=== PATIENT | female | born 1990 | race Caucasian/White ===

== ENCOUNTER 2022-06-11 12:28 | Emergency (ER) | payer OTHER, SELFPAY ==
[2022-06-11 12:34] VITALS: BP 139/85; PULSE 84; RESP 20; TEMP 36.8; O2SAT 99
--- NOTE | 2022-06-11 12:38 | ED.EXTPRO ---
HPI - Extremity Problem General Chief complaint: Extremity Problem,Nontraumatic Stated complaint: Pain in both shoulders Source: patient and RN notes reviewed History of Present Illness HPI Narrative: 32 yo F presents to urgent care with complaints of pain between her shoulder blades and bilateral upper back x 1 week. Pt states the pain will radiate down her bilateral upper arms to her elbows and reports intermittent tingling to the upper arms. Pt states the pain occurs when she lets her arms hang down to her side or lifts them above shoulder height. Pt states the pain is not present when she hold her arms at shoulder height. Pt reports lifting a heavy item at work 1 week ago and denies feeling the pain at the time of incident but states the pain started later that day. Denies any fevers, chills, chest pain,or SOB. Pt has taken 400 mg of ibuprofen without relief. Related Data Allergies Allergy/AdvReac Type Severity Reaction Status Date / Time ciprofloxacin [From Cipro] Allergy Rash Verified 06/11/22 12:34 Review of Systems Review of Systems: CONSTITUTIONAL: Denies fever, chills, or sweats. EYES: Denies visual changes, redness, or discharge. ENT: Denies otalgia and sore throat CARDIOVASCULAR: Denies chest pain, palpitations, or edema. RESPIRATORY: Denies cough or dyspnea. GASTROINTESTINAL: Denies abdominal pain, nausea, vomiting, or diarrhea. GENITOURINARY: Denies dysuria or hematuria. SKIN: Denies rash or itching. MUSCULOSKELETAL: Reports upper back pain NEUROLOGIC: Reports bilateral upper arm tingling, intermittently. [facility] Family History Family History (Updated 12/10/11 @ 13:43 by DOCTOR UNKNOWN) Other Diabetes mellitus Social History Social History Smoking status: Never smoker Alcohol intake: never Comments At the time of my signature, I reviewed and agree with the nursing past medical, surgical, social, and family history. There is no relevant family history pertinent to the patient complaint. Exam Narrative: GENERAL: This is a well-nourished, well-developed patient, in no apparent distress. HEAD: normocephalic, atraumatic. EYES: Sclera clear/white. Vision is grossly intact. EARS: External ears normal. Hearing grossly intact. NOSE: External nose normal with no obvious nasal discharge, nares without redness, no rhinorrhea. NECK: Neck supple, non-tender without lymphadenopathy, masses or thyromegaly. CARDIOVASCULAR: Regular rate and rhythm without murmurs, gallops, or rubs. RESPIRATORY: Clear to auscultation. Breath sounds equal bilaterally. No wheezes, rales, or rhonchi. GASTROINTESTINAL: Abdomen soft, non-tender, nondistended. Bowel sounds are active. No hepato-splenomegaly, or palpable masses. No guarding. SKIN: warm, intact with no suspicious lesions or rash, good texture and turgor. NEURO: awake, alert, and oriented to person, place and time. There were no obvious focal neurologic abnormalities. EXTREMITIES: No clubbing, cyanosis, or edema. No joint tenderness, effusion, or edema noted. Tenderness noted to bilateral trapezius muscles. BACK: Nontender without deformity or crepitance. No flank tenderness. Course Course Level of Care: Express Care Visit Vital Signs Vital signs: Vital Signs Temperature 98.3 F 06/11/22 12:34 Pulse Rate 84 06/11/22 12:34 Respiratory Rate 20 06/11/22 12:34 Blood Pressure 139/85 06/11/22 12:34 Pulse Oximetry 99 06/11/22 12:34 Oxygen Delivery Room Air 06/11/22 12:34 Temperature 98.3 F 06/11/22 12:34 Pulse Rate 84 06/11/22 12:34 Respiratory Rate 20 06/11/22 12:34 Blood Pressure 139/85 06/11/22 12:34 Pulse Oximetry 99 06/11/22 12:34 Oxygen Delivery Room Air 06/11/22 12:34 Reviewed MDM - Extremity (Nontraumatic) MDM Narrative Medical decision making narrative: May heat up back muscles for 15 min, followed by light stretches of the muscles for 15 min, followed by cold application for 15 min. May do this 2-3x/day. M
== END 2022-06-11 12:53 | disposition home or self-care (01) ==
PROVIDERS: Emergency Provider Nurse Practitioner Family; PCP Family Medicine
DX: S29.012A Strain of muscle and tendon of back wall of thorax, initial encounter (principal); X50.0XXA Overexertion from strenuous movement or load, initial encounter; Y99.0 Civilian activity done for income or pay; M54.13 Radiculopathy, cervicothoracic region
CPT/HCPCS: 99203; G0463

== ENCOUNTER 2025-03-17 11:27 | Emergency (ER) | payer OTHER, SELFPAY ==
--- NOTE | ~2025-03-17 | XR_ITS ---
Examination: XR wrist RT min 3V Clinical History: twisting injury, GEN LAT AND MED PAIN Comparison: None Technique: 4 views right wrist Findings/impression: 1. No acute fracture or dislocation right wrist. 2. Chronic avulsion fracture ulnar styloid. Reviewed, dictated and finalized at location R. OR AUTOMATION ENGINEER
--- OUTSIDE RECORDS SUMMARY | 2025-03-17 11:29 | XMS_ITS | Encounter Summary ---
Author Organization [facility] Address [address] [place] [address] Care Team Providers Care Shopping Investigator Name Role Phone Michelle Lou DUSTY Unavailable [phone] Encounter Details Date Type Department Care Team (Late st Contact Info) Description 03/26/2020 Telephone [facility] Women's Health Maternal & Care [address] [place], [place] [id number] Rocío Rhoades, [facility] Social History Tobacco Use Types Packs/Day Years Used Date Smoking Tobacco: Former Cigarettes 0 Q uit: 12/14/2007 Smokeless Tobacco: Never Alcohol Use Standard Drinks/Week Comments No 0 (1 standard drink = 0.6 oz pur e alcohol) social rarely Comments Yes Sex and Gender Information Value Date Recorded Sex Assigned at Not on file Legal Sex Female 5:56 PM PET CARE WORKER Gender Identity Not on file Sexual Orientation Not on file COVID-19 Exposure Response Date Recorded In the last month, have you been in contact with someone who was confirmed or suspected to have Coronavirus / COVID-19? No / Unsure 03/05/2020 1:59 PM PET CARE WORKER documented as of this encounter Functional Status * Is person deaf or have serious hearing difficulty? Answer Date of Assessment Author No 04/02/2019 12:00 PM PET CARE WORKER Homer Jorgensen, MARINA-SHANE * Is person blind or have serious difficulty seeing? Answer Date of Assessment Author No 04/02/2019 12:00 PM Homer Jose APRN-CNP * Does person have serious difficulty walking/climbing stairs? Answer Date of Assessment Author No 04/02/2019 12:00 PM Homer Jose APRN-CNP * Does person have difficulty dressing/bathing? Answer Date of Assessment Author No 04/02/2019 12:00 PM Homer Jose APRN-CNP * Does person have difficulty doing errands alone? Answer Date of Assessment Author No 04/02/2019 12:00 PM Homer Jose APRN-CNP documented as of this encounter Mental Status * Does person have difficulty concentrating/remembering/making decisions? Answer Entry Date Author No 04/02/2019 12:00 PM Homer Jose APRN-CNP documented in this encounter Plan of Treatment Not on file documented as of this encounter Visit Diagnoses Not on filedocumented in this encounter Care Teams Shopping Investigator Relationship Specialty Start Date End Date Michelle Lou APRN-CNP [address] [id number] PCP - Attributed-[place] Medicaid [facility] 12/25/20 10/07/22 documented as of this encounter
--- OUTSIDE RECORDS SUMMARY | 2025-03-17 11:29 | XMS_ITS | Clinical Summary ---
Author Organization [facility] Address [address] [place] [id number] Care Team Providers Care Staff Development Coordinator Name Role Phone None, Provider MD Primary Care Provider Unavaila ble Allergies Active Allergy Reactions Criticality Noted Date Comments Ciprofloxacin Rash Low 12/22/2019 Medications No known medications Family History Medical History Relation Comments No Known Problems Father No Known Problems Mother Relation Status Comments Father Mother Social History Tobacco Use Types Packs/Day Years Used Date Smoking Tobacco: Former Smokeless Tobacco: Never Alcohol Use Standard Drinks/Week Comments Never 0 (1 standard drink = 0.6 oz pur e alcohol) AUDIT-C Answer Date Recorded Q1: How often do you have a drink containing alc ohol? Never 04/23/2020 Average Number of Drinks Not on file 020 Frequency of Binge Drinking Not on file 03/27 Comments No Sex and Gender Information Value Date Recorded Sex Assigned at Not on file Legal Sex Female 8:00 AM CDT Gender Identity Not on file Sexual Orientation Not on file Last Filed Vital Signs Vital Sign Reading Time Taken Comments Blood Pressure 142/86 05/03/2021 9:19 AM PERSONAL COMPUTER SPECIALIST Pulse 82 05/03/2021 9:19 AM PERSONAL COMPUTER SPECIALIST Temperature 36.3 C (97.3 F) 05/03/2021 9:19 AM PERSONAL COMPUTER SPECIALIST Respiratory Rate 18 05/03/2021 9:19 AM PERSONAL COMPUTER SPECIALIST Oxygen Saturation 98% 05/03/2021 9:19 AM PERSONAL COMPUTER SPECIALIST Inhaled Oxygen Concentration - - Weight 78 kg (172 lb) 04/23/2020 3:19 PM PERSONAL COMPUTER SPECIALIST Height 157.5 cm (5' 2) 04/23/2020 3:19 PM PERSONAL COMPUTER SPECIALIST Body Mass Index 31.46 04/23/2020 3:19 PM PERSONAL COMPUTER SPECIALIST Plan of Treatment Health Maintenance Due Date Last Done Comments Cervical Cancer Screening Pa p Smear (Age 30 to 64) Every 3 Years 1988 Annual Physical 02/03/1991 DTaP, Tdap and Td Vaccines ( 1 - Tdap) 02/03/2007 Hepatitis B Vaccines (1 of 3 - 19+ 3-dose series) 02/03/2007 HPV Vaccines (1 - 3-dose SCD M series) 02/03/2015 Cervical Cancer Screening Pa p with HPV Testing (Age 30 to 64) Every 5 Years 02/03/2018 Cervical Cancer Screening with HPV 02/03/2018 COVID-19 Vaccine (2024-2 6 season) 2024 Influenza Adult (#1) 2025 Hepatitis C Completed 12/22/2019 Hepatitis A Vaccines Aged Out No long er eligible based on patient's age to complete this topic Meningococcal B Vaccine Aged Out No l onger eligible based on patient's age to complete this topic Meningococcal Vaccine Aged Out No romel donna eligible based on patient's age to complete this topic Pneumococcal Vaccine: Pediat rics (0 to 5 Years) and At-Risk Patients (6 to 49 Years) Aged Out No longer eligi ble based on patient's age to complete this topic RSV Immunizations Under 20 Months Aged Out No longer eligible based on patient's age to complete this topic Procedures Procedure Name Priority Date/Time Associated Diagnosis Comments HEPATITIS PANEL,ACUTE STAT 12/22/2019 2:20 AM CDT Abdominal pain from Last 3 Months or Most Recently Relevant to Health Maintenance Results * HEPATITIS PANEL,ACUTE (12/22/2019 2:20 AM CDT) HEPATITIS B SURFACE AG NON-REACTI VE NON-REACTI VE 12/22/2019 4:06 AM CDT [facility] HEP B CORE IGM NON-REACTI VE NON-REACTI VE 12/22/2019 4:06 AM CDT [facility] HAV IGM NON-REACTI VE NON-REACTI VE 12/22/2019 4:06 AM CDT [facility] HEPATITIS C AB NON-REACTI VE NON-REACTI VE 12/22/2019 4:06 AM CDT [facility] 12/22/2019 2:20 AM CDT Anuel Flores MD LABORATORY Final Result [facility] [address] [place] [address], from Last 3 Months or Most Recently Relevant to Health Maintenance Insurance [employer] Care Teams Staff Development Coordinator Relationship Specialty Start Date End Date None, Provider, PCP - General 05/03/21
--- OUTSIDE RECORDS SUMMARY | 2025-03-17 11:29 | XMS_ITS | Clinical Summary ---
Author Organization [facility] Address [address] [place] [address] Phone Care Team Providers Care Product Consultant Name Role Phone Provider, None Primary Care Provider Unavailabl e Allergies No known active allergies Medications HYDROcodone-acet aminophen (NORCO) 5-325 MG TabletIndication s:Moderate to Moderately Severe Pain Take 1-2 Tabs by mouth every 4 hours as needed for Pain. Indications: Moderate to Moderately Severe Pain 30 Tab 0 6 Active ondansetron (ZOFRAN-ODT) 4 MG TABLET DISPERSIBLE Take 1 Tab by mouth every 8 hours as needed for Nausea - 1st line. 15 Tab 9 Active oxyCODONE-acetam inophen (PERCOCET) 5-325 MG Tablet Take 1-2 Tabs by mouth every 4 hours as needed for Severe pain. 30 Tab 9 Active Active Problems No known active problems Family History Medical History Relation Name Comments Diabetes Brother Alcohol Abuse Father Alcohol Abuse Maternal Grandfather Heart Disease Maternal Grandfather Alzheimer's Disease Maternal Grandmother Heart Disease Maternal Grandmother Lupus Maternal Grandmother Miscarriage Maternal Grandmother Depression Mother Alcohol Abuse Paternal Grandfather Diabetes Paternal Grandfather Heart Attack Paternal Grandfather Heart Disease Paternal Grandfather Stroke Paternal Grandfather Alcohol Abuse Paternal Grandmother Heart Disease Paternal Grandmother Relation Name Status Comments Brother Father Alive Maternal Grandfather Maternal Grandmother Mother Alive Paternal Grandfather Paternal Grandmother Social History Tobacco Use Types Packs/Day Years Used Date Smoking Tobacco: Former Cigarettes 0 Q uit: 04/13/2008 Smokeless Tobacco: Never Alcohol Use Standard Drinks/Week Comments No 0 (1 standard drink = 0.6 oz pur e alcohol) Sexually Active Control Partners Comments Yes Male Comments No Sex and Gender Information Value Date Recorded Sex Assigned at Not on file Legal Sex Female 10:33 PM CDT Gender Identity Not on file Sexual Orientation Not on file Last Filed Vital Signs Vital Sign Reading Time Taken Comments Blood Pressure 115/71 03/31/2019 10:19 AM MINING ENGINEERING TECHNOLOGIST Pulse 87 03/31/2019 10:19 AM MINING ENGINEERING TECHNOLOGIST Temperature 36.6 C (97.9 F) 03/31/2019 10:19 AM MINING ENGINEERING TECHNOLOGIST Respiratory Rate 14 03/31/2019 10:19 AM MINING ENGINEERING TECHNOLOGIST Oxygen Saturation 98% 03/31/2019 10:19 AM MINING ENGINEERING TECHNOLOGIST Inhaled Oxygen Concentration - - Weight 74.8 kg (165 lb) 03/27/2019 9:33 PM MINING ENGINEERING TECHNOLOGIST Height 160 cm (5' 3) 03/27/2019 9:33 PM MINING ENGINEERING TECHNOLOGIST Body Mass Index 29.23 03/27/2019 9:33 PM MINING ENGINEERING TECHNOLOGIST Plan of Treatment Health Maintenance Due Date Last Done Comments Hepatitis C Virus (HCV) Screening 1988 Varicella Immunization (1 of 2 - 13+ 2-dose series) 02/03/2001 Pap Smear 02/03/2009 Human Papillomavirus (HPV) Immunization (1 - 3-dose SCDM series) 02/03/2015 Cervical Cancer Screening (CCS) 02/03/2018 HPV/Cotest 02/03/2018 Influenza Immunization (#1) 2024 SARS-COV-2 Immunization ( season) 2024 Respiratory Syncytial Virus (RSV) Immunization (Adult) (1 - 1-dose 75+ series) 02/03/2063 DTaP/Tdap/Td Immunization Discontinued 08/16/2007 TdaP Immunization Completed 08/16/2007 Hepatitis B Immunization Completed 009, 04/30/2008, 08/16/2007 Meningococcal Immunization (ACWY) Aged Out No longer eligible based on patient's age to complete this topic Pneumococcal Immunization Combined Aged Out No longer eligible based on patient's age to complete this topic Rotavirus Immunization Aged Out No lo nger eligible based on patient's age to complete this topic Insurance MEDICAID [place] Advance Directives * Full Code (Latest Code Status on File) Date Activated Date Inactivated Comments 10/03/2015 4:21 PM 10/06/2015 7:33 PM CPR-Full Rolanda tment: FULL ARREST: Attempt Resuscitation/CPR wit intubation and mechanical ventilation. PRE-ARREST: Use entire range of life support measures to stabilize the patient. * Full Code Date Activated Date Inactivated Comments 09/13/2015 9:29 AM 09/13/2015 1:22 PM CPR-Full Alex atment: FULL ARREST: Attempt Resuscitation/CPR wit intubation and mechanical ventilation. PRE-ARREST: Use entire range of life support measures to stabilize the patient. * Full Code Date Activated Date Inactivated Comments 09/10/2015 3:02 PM 09/10/2015 5:50 PM CPR-Full Alex atment: FULL ARREST: Attempt Resuscitation/CPR wit intubation and mechanical ventilation. PRE-ARREST: Use entire range of life support measures to stabilize the patient. * Full Code Date Activated Date Inactivated Comments 09/03/2015 10:54 AM 09/03/2015 3:52 PM CPR-Full Tr eatment: FULL ARREST: Attempt Resuscitation/CPR wit intubation and mechanical ventilation. PRE-ARREST: Use entire range of life support measures to stabilize the patient. * Full Code Date Activated Date Inactivated Comments 08/27/2015 10:05 PM 08/28/2015 7:22 PM CPR-Full Rolanda tment: FULL ARREST: Attempt Resuscitation/CPR wit intubation and mechanical ventilation. PRE-ARREST: Use entire range of life support measures to stabilize the patient. Care Teams Product Consultant Relationship Specialty Start Date End Date Provider, None [place] PCP - General 08/26/15
--- OUTSIDE RECORDS SUMMARY | 2025-03-17 11:29 | XMS_ITS | Clinical Summary ---
Author Organization [facility] Address [address] [place] [address] Care Team Providers Care Front Desk Supervisor Name Role Phone No, Physician Primary Care Provider [phone] Allergies Active Allergy Reactions Criticality Noted Date Comments Ciprofloxacin Rash Medium 10/05/2019 Medications nitrofurantoin monohydrate (MACROBID) 100 mg capsule Take 1 capsule (100 mg total) by mouth 2 (two) times a day 10 capsule 10/19/2024 Active phenazopyridine (PYRIDIUM) 200 mg tablet Take 1 tablet (200 mg total) by mouth 3 (three) times a day 6 tablet 10/19/2024 Active Active Problems Problem Noted Date Diagnosed Date Low grade squamous intraepit h lesion on cytologic smear cervix (lgsil) 07/24/2020 History of 09/19/2019 Overview (02/19/2020): 2008 op report requested 02/19/2020 Pt reports being told she had a J incision. Gestational diabetes mellitus (GDM), antepartum 09/19/2019 Overview (02/16/2020): Will send referral to [facility] once is confirmed. 09/24-10/03 Fastin-109 9/ elevated PP bfast: 104-160 2/7 elevated PP lunch: 98-131 1/4 elevated PP dinner: 106-178 5/8 elevated 10/12/19 New regimen: Humalog 4 at breakfast, 6 at dinner NPH: 10 units with breakfast, 20 units HS Fastin-112 PP bfast: 128-130 PP lunch: 98-124 PP dinner: 94-130 10/19/19 Humalo units with bfast, 6 units with dinner NPH: 10 units with bfast, 24 units with dinner Fastin-100 PP bfast: 104-130 PP lunch: 110-130 PP dinner: 97-130 10/26/2019 Fastin-107 PP bfast: 72-127 PP lunch: 95-150 PP dinner: 100-140 11/09/2019 Fastin-111 PP bfast: 90-176 PP lunch: 107 PP dinner: 85-177 11/17/2019 Fastin-97 PP bfast: 97-122 PP lunch: 89-184 PP dinner: 85-136 11/23/19 Fastin-102 PP bfast: 90-105 PP lunch: 89-116 PP dinner: 90-145 12/21/2019 Fastin-129 3/ elevated PP bfast: 92-114 0/3 e;evated PP lunch: 82-224 1/ elevated PP dinner: 83-225 2/7 elevated 01/18/2020 Fasting 73-85 PP bfast: 93-314 1 of 3 over goal PP lunch: 98-140 2 of 4 over goal PP dinner: 111-169 2 of 7 over goal 02/15/2020 Fasting 77-109 4 of 7 over goal After meals 89-158 2 of 11 of goal Encounter for removal of biliary stent 8 Overview (03/10/2018): Added automatically from request for surgery [id number] Choledocholithiasis 02/22/2018 Overview (02/22/2018): Added automatically from request for surgery [id number] Pancreatitis 02/08/2018 Assessment & Plan (02/10/2018 1:45 PM CDT): - patient developed post ERCP pancreatitis with PD stent migration on imaging on 02/07 -Lipase 920--->980 -improved with conservative management : IV fluids, NPO, PRN IV morphine Started clears 02/08 and advanced diet, has tolerated low fat diet for lunch, ok for discharge home today Assessment & Plan (02/09/2018 8:20 PM CDT): - patient developed post ERCP pancreatitis with PD stent migration on imaging on 02/07 -Lipase 920--->980 -improved with conservative management : IV fluids, NPO, PRN IV morphine Started clears and advancing diet Assessment & Plan (02/08/2018 10:32 AM CDT): - patient developed post ERCP pancreatitis with PD stent migration on imaging on 02/07 -Lipase 920--->980 - conservative management : IV fluids, NPO, on PRN IV morphine pain better controlled , still requiring frequent IV morphine: monitor and will consider starting trial of clears when narcotics requirement decreased Hepatitis C antibody test positive 02/07/2018 Assessment & Plan (02/10/2018 1:45 PM CDT): - Hep C antibody done on 02-04-18 at [facility] is positive -checked HCV PCR : not detected. Assessment & Plan (02/09/2018 8:21 PM CDT): - Hep C antibody done on 02-04-18 at [facility] is positive -checked HCV PCR : not detected Assessment & Plan (02/08/2018 10:15 AM CDT): - Hep C antibody done on 02-04-18 at [facility] is positive -checking HCV PCR, results pending Assessment & Plan (02/07/2018 9:50 AM CDT): - Hep C antibody done on 02-04-18 at [facility] is positive -check HCV PCR Choledocholithiasis with obstruction 02/05/2018 Assessment & Plan (02/10/2018 1:57 PM CDT): Biliary following: s/p ERCP on 02/07 with biliary sphincterotomy, mechanical lithotripsy, balloon extraction and placement of plastic stent in the CBD and a protective PD stent was placed per study protocol per Biliary (#[id number]), c/b post ERCP pancreatitis with PD stent migration on imaging. -Plan discussed with Biliary,Team plans to repeat ERCP in 3 months for stent removal and will need HBS consult for consideration of CCK once pancreatitis improved, called HBS and t will be will be set up with clinic appointment with Dr Davenport after discharge Pt improved, tolerating solid diet, dc home today Assessment & Plan (02/09/2018 8:22 PM CDT): Biliary following: s/p ERCP on 02/07 with biliary sphincterotomy, mechanical lithotripsy, balloon extraction and placement of plastic stent in the CBD and a protective PD stent was placed per study protocol per Biliary (#[id number]), c/b post ERCP pancreatitis with PD stent migration on imaging. -Plan discussed today with Biliary,Team plans to repeat ERCP in 3 months for stent removal and will need HBS consult for consideration of CCK once pancreatitis improved, called HBS and they will set up a clinic appointment after discharge Assessment & Plan (02/08/2018 10:24 AM CDT): Biliary following: s/p ERCP on 02/07 with biliary sphincterotomy, mechanical lithotripsy, balloon extraction and placement of plastic stent in the CBD and a protective PD stent was placed per study protocol per Biliary (#[id number]), c/b post ERCP pancreatitis with PD stent migration on imaging. -Plan discussed today with Biliary, continue to monitor LFTs daily .No evidence of cholangitis , ok to dc antibiotics - Team plans to repeat ERCP in 3 months for stent removal and will need HBS consult for consideration of CCK once pancreatitis improved Assessment & Plan (02/07/2018 9:51 AM CDT): Acute cholelithiasis with cholecystitis, with obstruction. - Biliary following. Plan for ERCP today. - Continue Zosyn (started on admission) - Monitoring LFTs, still elevated And mildly downtrening - IV Morphine PRN pain, Zofran PRN nausea Assessment & Plan (02/06/2018 5:37 PM CDT): Acute cholelithiasis with cholecystitis, with obstruction. - Biliary following. Plan for ERCP tomorrow. - Continue Zosyn (started on admission) - Monitor LFTs - Trial of clear liquids today, NPO p MN for ERCP tomorrow - IV Morphine PRN pain, Zofran PRN nausea Assessment & Plan (02/05/2018 1:24 PM CDT): - Acute cholelithiasis with cholecystitis, with obstruction. - Consulted GI for further evaluation and treatment - Zosyn 3.375 every 6 hours prophylactically given plans for possible ERCP - NPO and maintain IV rehydration with NS @100ml/hr - Obtain blood cultures if pt spikes and broaden antibiotic coverage. - Uptitrate pain regimen as needed - start with morphine 2mg IV every 4 hrs prn - Zofran Q6 hours prn for nausea Resolved Problems Problem Noted Date Diagnosed Date Resolved Date Obesity (BMI 30-39.9) 04/28/20192019 Chronic low back pain 01/29/20182019 Assessment & Plan (02/10/2018 1:52 PM CDT): - Continue With home Tizanidine - Holding home Naproxen and she will need to hold for 10 days after ERCP Resume Tramadol PRN Assessment & Plan (02/09/2018 8:21 PM CDT): - Continue With home Tizanidine - Holding home Naproxen and Tramadol with plan to resume on DC . Assessment & Plan (02/08/2018 10:15 AM CDT): - Continue With home Tizanidine - Holding home Naproxen and Tramadol with plan to resume on DC . Assessment & Plan (02/07/2018 9:50 AM CDT): - Continue With home Tizanidine - Holding home Naproxen and Tramadol. Plan to resume on DC . Assessment & Plan (02/06/2018 5:38 PM CDT): - Continue home Tizanidine - Holding home Naproxen and Tramadol; resume on DC Surgical History Surgery Date Site/Laterality Comments SECTION 04/26/2008 - 04/25/2009 LAPAROSCOPIC CHOLECYSTECTOMY 04/26/2017 - 04/25/2018 REPEAT SECTION 04/26/2015 - 04/25/2016 SALPINGECTOMY Medical History Medical History Date Comments Abnormal Pap smear of cervix 2014 LSI L, HPV (+). Colposcopy in - no lesions to biopsy. Gestational diabetes Depression Family History Medical History Relation Name Comments Breast cancer Cousin Bladder Cancer Father bladder cancer Father Epilepsy Maternal Grandmother Lupus Maternal Grandmother Diabetes type I Maternal Half-Brother cau se of Anxiety disorder Mother Depression Mother PTSD Mother Heart attack Paternal Grandfather defects Neg Hx Ovarian cancer Neg Hx Uterine cancer Neg Hx Relation Name Status Comments Cousin Other Father Maternal Grandmother Maternal Half-Brother Mother Paternal Grandfather Social History Tobacco Use Types Packs/Day Years Used Date Smoking Tobacco: Former Cigarettes - 2007 Smokeless Tobacco: Never Alcohol Use Standard Drinks/Week Comments No 0 (1 standard drink = 0.6 oz pur e alcohol) Personal Safety Answer Date Recorded Have you ever been in or are you currently in a harmful physical or emotional relationship or is someone making you feel afraid or unsafe? 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 2008 - arrest of labor at 5-6 cm. 1' C/S. Reynaldo. 3. 2015 - repeat c/s. GDM. Last Filed Vital Signs Vital Sign Reading Time Taken Comments Blood Pressure 136/87 10/19/2024 9:59 PM CDT Pulse 73 10/19/2024 9:59 PM CDT Temperature 36.4 C (97.5 F) 10/19/2024 9:59 PM CDT Respiratory Rate 20 10/19/2024 9:59 PM CDT Oxygen Saturation 99% 10/19/2024 9:59 PM CDT Inhaled Oxygen Concentration - - Weight 91.2 kg (201 lb) 10/19/2024 10:19 PM CDT Height 160 cm (5' 3) 12/18/2022 10:51 AM CDT Body Mass Index 35.61 12/18/2022 10:51 AM CDT Plan of Treatment Health Maintenance Due Date Last Done Comments Albumin Creatinine Ratio, Urine 1990 Depression Screening 1990 Dilated Eye Exam 1990 Foot Exam 1990 Varicella Vaccines (1 of 2 - 13+ 2-dose series) 02/03/2001 Pneumococcal vaccine <65 (1 of 2 - PCV) 02/03/2007 HPV Vaccines (1 - 3-dose SCD M series) 02/03/2015 Hemoglobin A1C 06/23/2023 12/21/2022, 11/24, 08/08/2020, Additional history exists Cervical Cancer Screening 12/19/20232022, 12/18/2022, 12/12/2021, Additional history exists Regular Well Visit/Exam 18-64 12/19/2023, 12/12/2021, 07/23/2020, Additional history exists Lipid Panel 12/22/2023 12/21/2022, 12/12/2021 eGFR 12/22/2023 12/21/2022, 11/24, 2018 Influenza Vaccine (#1) 2024 DTaP/Tdap/Td Vaccine (3 - Td or Tdap) 04/02/2030 04/02/2020, 08/16/2007 Hepatitis B Screening Completed 06/26/2008 , 04/30/2008, 08/16/2007 Hepatitis C Screening Completed 08/29/2019 , 02/07/2018, 2018 Medical Devices Implanted Type Area Chemistry Physics Teacher Device Identifier Shelf Expiration Date Model / Serial / Lot Spyder Lynk 6544 Dobbs Flexi-Stent 4fr 7cm Small Pigtail Flexible .025in Stent - [id number] Implanted:Qty: 1 on 02/07/2018 by Saeid Phillip MD at [facility] N/A: Pancreas [employer] 12/24/2022 [id number] / / [id number] [employer] Pete 3204 C-Flex 10fr 5cm Gastrointestine 2 Pigtail Curve Stent Biliary - [id number] Implanted:Qty: 1 on 02/07/2018 by Saeid Phillip MD at [facility] N/A: Bile Duct [employer] 10/31/2020 [id number] / / [id number] Procedures Procedure Name Priority Date/Time Associated Diagnosis Comments EGFR Routine 12/21/2022 9:29 AM CDT Well woman exam HEMOGLOBIN A1C Routine 12/21/2022 9:29 AM CDT Well woman exam LIPID PANEL Routine 12/21/2022 9:29 AM CDT Well woman exam PAP AND HIGH RISK HPV, REFLEX TO GENOTYPING Routine 12/18/2022 11:03 AM CDT Well woman exam HEPATITIS C ANTIBODY Routine 08/29/2019 3:57 PM CDT Positive test from Last 3 Months or Most Recently Relevant to Health Maintenance Results * eGFR (12/21/2022 9:29 AM CDT) eGFR 96 mL/min/1. 73 m2 KATIE LUIS (MCKAYLA) Comment: Interpretive Data Reference Interval Normal >/= 90 mL/min/1.73m2 Mildly decreased* 60 - 89 mL/min/1.73m2 Mildly to moderately decreased 45 - 59 mL/min/1.73m2 Moderately to severely decreased 30 - 44 mL/min/1.73m2 Severely decreased 15 - 29 mL/min/1.73m2 Kidney Failure < 15 mL/min/1.73m2 *Relative to young adult level Estimated glomerular filtration rate is determined by the 2020 CKD-EPI equation recommended by the National Kidney Foundation (A Unifying Approach to GFR Estimation: Recommendations of the NKF-ASK Task Force on Reassessing the Inclusion of Race in Diagnosing Kidney Disease, JASN 2020). The CKD-EPI equation should not be used for patients with unstable renal function and has not been validated in children and those over 70. Current interpretive data was last reviewed 2021. Blood 12/21/2022 9:29 AM CDT 12/21/2022 9:48 AM CDT Ashley Galloway MD LAB BLOOD ORDERABLES Final Result Performing Organization Address [facility] de Phone Number KATIE LUIS (KINSLEY) 1 [facility] [place] [address] * Hemoglobin A1c (12/21/2022 9:29 AM CDT) Hgb A1C 5.3 4.0 - 5.6 % KATIE LUIS (MCKAYLA) Estimated Average Glucose 105 mg/dL KATIE LUIS (MCKAYLA) Comment: The ADA recommends reporting an estimated Average Glucose (eAG) with all Hemoglobin A1c results using the equation derived from a study of 507 normal and diabetic adults. Minority populations were underrepresented and children were not included. (Diabetes Care 31:8143-8073, 2008). The eAG is not equivalent to a fasting glucose. Blood 12/21/2022 9:29 AM CDT 12/21/2022 9:48 AM CDT Ashley Galloway MD LAB BLOOD ORDERABLES Final Result Performing Organization Address [facility] Co de Phone Number KATIE LUIS (MCKAYLA) 1 [facility] [place] [address] * Lipid panel (12/21/2022 9:29 AM CDT) Cholesterol 161 30 - 199 mg/dL KAITE LUIS (MCKAYLA) Comment: Interpretive Data Ages < or = 19 years Acceptable: <170 mg/dL Borderline high: 170-199 mg/dL High: >or= 200 mg/dL Ages > or = 20 years Desirable: <200 mg/dL Borderline high: 200-239 mg/dL High: >or= 240 mg/dL Literature References: 1. Expert Panel on Integrated Guidelines for Cardiovascular Health and Risk Reduction in Children and Adolescents. Pediatrics 2011;128:S213 2. NCEP Expert Panel. Circulation 2004;110:227 Current Interpretive Data was last revised on 2017. Triglycerides 63 <=149 mg/dL KATIE LUIS (MCKAYLA) Comment: Interpretive Data Ages < or = 9 years Acceptable: <75 mg/dL Borderline high: 75-99 mg/dL High: >or= 100 mg/dL Ages 10 to 20 years Acceptable: <90 mg/dL Borderline high: 90-129 mg/dL High: >or= 130 mg/dL Ages > or = 20 years Desirable: <150 mg/dL Borderline high: 150-199 mg/dL High: 200-499 mg/dL Very high: >or= 499 mg/dL Literature References: 1. Expert Panel on Integrated Guidelines for Cardiovascular Health and Risk Reduction in Children and Adolescents. Pediatrics 2011;128:S213 2. NCEP Expert Panel. Circulation 2004;110:227 Current Interpretive Data was last revised on 2017. HDL 55 >=40 mg/dL KATIE KINNEY H (MCKAYLA) Comment: Interpretive Data Ages < or = 19 years Acceptable: >45 mg/dL Borderline low: 40-45 mg/dL Low: <40 mg/dL Ages > or = 20 years Desirable: >or= 60 mg/dL Low: <40 mg/dL Literature References: 1. Expert Panel on Integrated Guidelines for Cardiovascular Health and Risk Reduction in Children and Adolescents. Pediatrics 2011;128:S213 2. NCEP Expert Panel. Circulation 2004;110:227 Current Interpretive Data was last revised on 2017. LDL, calculated 93 <=129 mg/dL KATIE LUIS (MCKAYLA) Comment: Interpretive Data Ages < or = 19 years Acceptable: <110 mg/dL Borderline high: 110-129 mg/dL High: >or= 130 mg/dL Ages > or = 20 years Optimal: <100 mg/dL Near optimal: 100-129 mg/dL Borderline high: 130-159 mg/dL High: >160 mg/dL Literature References: 1. Expert Panel on Integrated Guidelines for Cardiovascular Health and Risk Reduction in Children and Adolescents. Pediatrics 2011;128:S213 2. NCEP Expert Panel. Circulation 2004;110:227 Current Interpretive Data was last revised on 2017. Non-HDL Cholesterol 106 mg/dL KATIE LUIS (KINSLEY) Comment: Interpretive Data Ages < or = 19 years Acceptable: <120 mg/dL Borderline high: 120-144 mg/dL High: >145 mg/dL Ages > or = 20 years When triglycerides are >200 mg/dL, Non-HDL cholesterol is a secondary target of therapy with treatment goals that are 30 mg/dL greater than the LDL cholesterol target. Literature References: 1. Expert Panel on Integrated Guidelines for Cardiovascular Health and Risk Reduction in Children and Adolescents. Pediatrics 2011;128:S213 2. NCEP Expert Panel. Circulation 2004;110:227 Current Interpretive Data was last revised on 2017. Chol/HDL ratio 3 ERNESTO LUIS (KINSLEY) Blood 12/21/2022 9:29 AM CDT 12/21/2022 9:48 AM CDT Ashley Galloway MD LAB BLOOD ORDERABLES Final Result KATIE LUIS (KINSLEY) 1 [facility] Department [place] [address] * (ABNORMAL) Pap and High Risk HPV and Genotyping (Cytology Component) (12/18/2022 11:03 AM CDT) Endocervical (Pap test) 12/18/2022 11:03 AM CDT 12/21/2022 11:03 AM CDT Narrative PATHOLOGY [facility] - 12/29/2022 1:22 PM CDT [facility] Department of Pathology [address] [place] [id number] Final Report with Addendum Note to Patients: This report may contain a detailed description of human tissue sent by a health care provider to the laboratory for pathologic evaluation. The content of this report is essential for diagnosis and may provide important critical findings. This information may be unfamiliar to patients to review without a medical professional present. It is advised that the patient review this report in the presence of a health care provider who can answer questions and explain the details. Patient Name: YUDITH LEBRON Address: [address] [place], [place] [id number] Gender: F : 1990 (Age: 32) Service: Location: [facility] #: [id number] Patient Type: MHE SPECIMEN Taken: 12/18/2022 Received: 12/21/2022 Accessioned:: 12/22/2022 Reported: 12/29/2022 Physician(s): Ashley Galloway M.D. [facility] Diagnosis: SOURCE OF SPECIMEN SCREENING THIN PREP IMAGED PAP w/ HPV: STATEMENT OF ADEQUACY - Satisfactory for evaluation; endocervical/transformation zone component present GENERAL CATEGORIZATION: - Epithelial cell abnormality INTERPRETATION: - Low grade squamous intraepithelial lesion (LSIL) encompassing HPV/mild dysplasia/DAYNA I KIM Quintero(ASCP)Rodrigo Ramírez M.D. Report Electronically Reviewed and Signed Out By Rodrigo Ramírez M.D. 12/29/2022 13:22:13Addenda: HPV Test Interpretation HPV HR 16- Not detected HPV HR 18-Not detected HPV HR non 16/18- Detected Interpretive Data Nucleic acid amplification for detection of high-risk Human Papilloma virus (HPV) is performed by the Nadya Jennifer 6800 HPV test. This assay specifically detects HPV- 16 and HPV-18 genotypes. The following HPV genotypes are detected as high-risk HPV: HPV-31, 33, 35, 39, 45, 51, 52, 56, 58, 59, 66, and 68. This assay has been approved by the [place] Food and Drug Administration for detection of HPV in cervical specimens collected by a physician using an endocervical brush/spatula or cervical broom and placed in the ThinPrep Pap Test PreservCyt collection containers. The performance characteristics of this test have been verified by the [facility] Molecular Infectious Disease laboratory. Correlate with reported cytology results, as applicable. Interpretive data last revised 22 KIM Samayoa(ASCP)Report Electronically Reviewed and Signed Out By KIM Samayoa(ASCP) 12/23/2022 11:05:58 Specimen(s) Received: A: SCREENING THIN PREP IMAGED PAP w/ HPV Clinical History: Last Menstrual Period: 11/22/2022 Menstrual History: Previous Abnormal Pap The Pap test is a screening test used to aid in the detection of cervical cancer and its precursors. It should not be the sole means by which malignant and premalignant lesions are diagnosed. Both false negative and false positive results may occur. It also has poor sensitivity for the detection of endometrial lesions and should not be used to evaluate suspected endometrial abnormalities. For these reasons it is most important to obtain Pap tests at regular intervals. The performance characteristics of some immunohistochemical stains, fluorescence in-situ hybridization tests and immunophenotyping by flow cytometry cited in this report (if any) were determined by the Surgical Pathology Department at [facility] as part of an ongoing fuel quality tech program and in compliance with federally mandated regulations drawn from the Clinical Laboratory Improvement Act of 1988 (CLIA '88). Some of these tests rely on the use of analyte specific reagents and are subject to specific labeling requirements by the US Food and Drug Administration. Such diagnostic tests may only be performed in a facility that is certified by the Department of Health and Human Services as a high complexity laboratory under CLIA '88. The FDA has determined that such clearance or approval is not necessary. This test is used for clinical purposes. It should not be regarded as investigational or for research. Nevertheless, federal rules concerning the medical use of analyte specific reagents require that the following disclaimer be attached to the report: This test was developed and its performance characteristics determined by the Surgical Pathology Department [facility]. It has not been cleared or approved by the U. S. Food and Drug Administration. Ashley Galloway MD LAB CYTOLOGY ORDERABLES [facility] al Result PATHOLOGY [facility] * Hepatitis C antibody (08/29/2019 3:57 PM CDT) Hep C Ab NONREACT NONREACTIVE [facility] Comment: Siemens CentaurXP using PORSCHE (chemiluminescent immunoassay) technology. NONREACTIVE: Antibodies to Hepatitis C not detected. This does not exclude early acute Hepatitis C infection, possibility of exposure to Hepatitis C, antibodies below detection limit, or to lack of antibody reactivity to the antigen used in this assay. EQUIVOCAL: Antibodies to Hepatitis C may or may not be present. Sample to be confirmed by real-time PCR method. REACTIVE: Antibodies to Hepatitis C detected.Sample to be confirmed by real-time PCR method. Blood specimen (specimen) 08/29/2019 3:57 PM CDT 08/29/2019 4:07 PM CDT Narrative Resulting Agency Comment CLI Benny Root MD LAB MICROBIOLOGY - GENERAL ORDERABLES Final Result [facility] [employer] [address] [address], [facility] [phone] from Last 3 Months or Most Recently Relevant to Health Maintenance Insurance [employer] [place] [employer] [employer] [place] Advance Directives For more information, please contact: [phone] * Full Code (Latest Code Status on File) Date Activated Date Inactivated Comments 02/05/2018 6:00 AM 02/10/2018 4:46 PM Care Teams Front Desk Supervisor Relationship Specialty Start Date End Date No, Physician PCP - General 01/29/18
--- OUTSIDE RECORDS SUMMARY | 2025-03-17 11:29 | XMS_ITS | Clinical Summary ---
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 This disclosure is being madepursuant to the Care Everywhere program and may not contain all information available regarding this patient. Last updated 18.[facility] Allergies Active Allergy Reactions Criticality Noted Date Comments Ciprofloxacin Rash Medium 10/05/2019 Medications * Be aware that medications may not be up to date on this document. Alwaysverify current medications with the patient. No known medications Active Problems Problem Noted Date Diagnosed Date Gestational diabetes 10/05/2019 Overview (10/05/2019): Hx A1GDM; met with educators in [place] Baseline A1C: 5/2% Early GCT (08/24) 174 Early GTT (08/31: [phone] PP BMI 36.01 (60, 197 lbs at 1st OV) Fourth 10/04/2019 Hx of section 10/04/2019 Overview (10/04/2019): X 2 Rubella non-immune status, antepartum 10/04/2019 Overview (10/04/2019): Equivocal Personal history of other infectious and parasit ic diseases 05/08/2015 Overview (07/26/2017): Treated in past History of uterine scar due to previous surgery 05/08/2015 Resolved Problems Problem Noted Date Diagnosed Date Resolved Date Choledocholithiasis 03/31/2019 11/08/19 21 Biliary obstruction 03/29/2019 11/08/19 21 Family History Medical History Relation Name Comments Cancer - Bladder Father Anxiety Disorder Maternal Grandmother Dementia Maternal Grandmother Lupus Maternal Grandmother Mood Disorder Maternal Grandmother manic depression Parkinson's Disease Maternal Grandmother Seizures Maternal Grandmother Depression Mother Diabetes Paternal Grandfather Diabetes - Type 1 half-brother Depression half-sister 1 Relation Name Status Comments Brother Alive Father Alive Maternal Grandfather Maternal Grandmother Mother Alive Paternal Grandfather Paternal Grandmother half-brother half-sister 1 Alive half-sister 2 Alive Social History Tobacco Use Types Packs/Day Years Used Date Smoking Tobacco: Former Cigarettes 4 0 12/14/2003 - 12/14/2007 Smokeless Tobacco: Never Alcohol Use Standard Drinks/Week Comments No 0 (1 standard drink = 0.6 oz pur e alcohol) social rarely Comments No Sex and Gender Information Value Date Recorded Sex Assigned at Not on file Legal Sex Female 5:[address] COMMISSIONER Gender Identity Not on file Sexual Orientation Not on file Last Filed Vital Signs Vital Sign Reading Time Taken Comments Blood Pressure 124/93 11/07/2020 9:53 AM CDT Pulse 79 11/07/2020 9:53 AM CDT Temperature 36.3 C (97.3 F) 11/07/2020 9:53 AM CDT Respiratory Rate 20 11/07/2020 9:53 AM CDT Oxygen Saturation 100% 11/07/2020 9:53 AM CDT Inhaled Oxygen Concentration - - Weight 92.1 kg (203 lb) 11/07/2020 9:53 AM CDT Height 157.5 cm (5' 2) 11/07/2020 9:53 AM CDT Body Mass Index 37.13 11/07/2020 9:53 AM CDT Plan of Treatment Health Maintenance Due Date Last Done Comments HIV SCREENING 02/03/2003 HEPATITIS C SCREENING 01/30/2006 DTAP/TDAP/TD VACCINES (1 - Tdap) 02/03/2007 HEPATITIS B VACCINE (1 of 3 - 19+ 3-dose series) 02/03/2007 PAP SMEAR 02/03/2009 04/26/1998 HPV VACCINE (1 - 3-dose SCDM series) 02/03/2015 Cervical Cancer Screening 02/03/2018 PAP with HPV 02/03/2018 DEPRESSION SCREENING 04/26/2024 COVID-19 VACCINE (1 - 2024-2 6 season) 2024 INFLUENZA VACCINE (#1) 2024 ZOSTER VACCINE (1 of 2) 02/03/2038 HIB VACCINE Aged Out No longer eligi ble based on patient's age to complete this topic MENINGOCOCCAL (Group B) VACC INE SHARED DECISION-MAKING Aged Out No longer eligibl e based on patient's age to complete this topic MENINGOCOCCAL GROUPS A/C/Y/W VACCINE Aged Out No longer eligible b ased on patient's age to complete this topic PNEUMOCOCCAL VACCINE Aged Out No long er eligible based on patient's age to complete this topic Medical Devices Explanted Type Area Chef Device Identifier Shelf Expiration Date Model / Serial / Lot Stent Biliary 10fr 11cm Drn Obstruct Implanted:Qty: 1 on 03/31/2019 by Charlie Cherry MD at [facility] Explanted:Qty: 1 on 06/02/2019 by Charlie Cherry MD at [facility] [employer] 10/19/2020 [id number] / / Stent Biliary 10fr 9cm Ddnl Bnd Temp Rap Implanted:Qty: 1 on 03/31/2019 by Charlie Cherry MD at [facility] Explanted:Qty: 1 on 06/02/2019 by Charlie Cherry MD at [facility] [employer] 11/13/2020 [id number] / / [employer] Flexima Biliary Stent 10f X 10 Cm Implanted:Qty: 1 on 06/02/2019 by Charlie Cherry MD at [facility] Explanted:Qty: 1 on 11/06/2019 by Charlie Cherry MD at [facility] gtin [id number] 08/24/2019 [id number] / / [id number] Description:REF Stent Biliary 10fr 9cm Drn Obstructed Implanted:Qty: 1 on 06/02/2019 by Charlie Cherry MD at [facility] Explanted:Qty: 1 on 11/06/2019 by Charlie Cherry MD at [facility] [employer] 02/10/2022 [id number] / / [id number] Procedures Procedure Name Priority Date/Time Associated Diagnosis Comments PAP THINPREP Routine 04/26/1998 12:[address] COMMISSIONER from Last 3 Months or Most Recently Relevant to Health Maintenance Results * PAP THINPREP (04/26/1998 12:[address] COMMISSIONER) Prostatic Acid Phosphatase LGSIL [facility] Cervical swab (specimen) PART OF UTERINE CERVIX / Unknown 04/26/1998 Narrative [facility] - 04/26/1998 12:[address] COMMISSIONER This external order was created through the Results Console. 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
[2025-03-17 11:39] VITALS: BP 122/65; PULSE 74; RESP 16; TEMP 36.4; O2SAT 100
--- NOTE | 2025-03-17 11:56 | ED_ITS ---
HPI - Extremity Injury (Upper) General Chief Complaint: Extremity Injury, Upper Stated Complaint: Right Wrist Injury Time Seen by Provider: 03/17/25 11:50 Source: patient, RN notes reviewed and old records reviewed Mode of arrival: ambulatory Limitations: no limitations History of Present Illness HPI narrative: 35-year-old female who presents to [facility] with complaints of injury to her right wrist which occurred 6 days ago when she was lifting a box with 2 large laundry detergents in it and twisted her right wrist. Patient has pain to the ulnar aspect of her right wrist with increased pain with movement. 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 Patient reports that she has been taking Ibuprofen and she has used ice to her right wrist at times. MD complaint: injury to: right and wrist Onset (ago): day(s) (6) Other injuries: none Place: work Severity scale (1-10): 7 Treatments prior to arrival: cold therapy and NSAIDS Related Data Allergies Allergy/AdvReac Type Severity Reaction Status Date / Time ciprofloxacin (From Cipro) Allergy Rash Verified 03/17/25 11:49 Review of Systems Review of Systems: CONSTITUTIONAL: Denies fever, chills, or sweats. EYES: Denies visual changes, redness, or discharge. ENT: Denies rhinorrhea, congestion, sore throat, or otalgia. CARDIOVASCULAR: Denies chest pain, palpitations, or edema. RESPIRATORY: Denies cough or dyspnea. GASTROINTESTINAL: Denies abdominal pain, nausea, vomiting, or diarrhea. GENITOURINARY: Denies dysuria or hematuria. SKIN: Denies rash or itching. MUSCULOSKELETAL: Denies back pain,positive forpain to the ulnar aspect of her right wrist, or myalgia. NEUROLOGIC: Denies headache, numbness, or weakness. PSYCHIATRIC: Denies anxiety or depression. All systems reviewed & are unremarkable except as noted in HPI and below PMFSH Past Medical History Medical History (Updated 03/19/25 @ 07:42 by Hannah Francisco APRN) UTI (urinary tract infection) Surgical History Surgical History (Updated 03/19/25 @ 07:47 by Hannah Francisco APRN) H/O tubal ligation H/O section x2 Family History Family History (Updated 12/10/11 @ 13:43 by DOCTOR UNKNOWN) Other Diabetes mellitus Social History Social History (Updated 03/19/25 @ 07:49 by Hannah Francisco, MARINA) Smoking packs per day: 0.5 Smoking cigarettes per day: 10.0 Years smoked: 2 Smoking pack-years: 1.00 Smoking status: Former smoker Tobacco type: cigarettes Additional smoking assessment comments: smoked for 2 years quit 2016 Alcohol intake: never Substance use type: does not use Living arrangements: with family Gender identity (if verbalized by the patient): Female Comments At time of signature, agree with nursing past medical, surgical, social and family history. There is no relevant family history pertinent to the presenting complaint Exam Narrative: GENERAL: Well-appearing, well-nourished, and in no acute distress. HEAD: Normocephalic, atraumatic. EYES: PERRLA and EOMI. ENT: Nares clear, no rhinorrhea or epistaxis. Mucous membranes moist.TM's normal with brisk light reflex, throat pink with no swelling or exudates. NECK: Supple.no lymphadenopathy CHEST: Clear to auscultation. No respiratory distress.SAO2 100% on room air HEART: Regular rate and rhythm. No murmur heard. Normal peripheral pulses. ABDOMEN: Soft, nontender, nondistended, normal active bowel sounds. EXTREMITIES: Normal range of motion. No edema. Positive for pain to the right wrist along ulnar aspect with pain with movement, strong pulse to right wrist,nail beds natalie briskly, sensation intact SKIN: Warm, dry, no rash. NEURO: No focal deficits. Alert and oriented x3. Course Course Emergency Course: Patient is aware of diagnosis, understands and agrees to treatment plan.? Anticipatory guidance given.? Patient agrees to follow-up as directed and is aware of reasons to seek care at the emergency department. Portions of this record may have been created with voice recognition software Level of Care: Express Care Visit Vital Signs Vital signs: Vital Signs Temperature 36.4 C 03/17/25 11:39 Pulse Rate 74 03/17/25 11:39 Respiratory Rate 16 03/17/25 11:39 Blood Pressure 122/65 03/17/25 11:39 Pulse Oximetry 100 03/17/25 11:39 Oxygen Delivery Room Air 03/17/25 11:39 Temperature 36.4 C 03/17/25 11:39 Pulse Rate 74 03/17/25 11:39 Respiratory Rate 16 03/17/25 11:39 Blood Pressure 122/65 03/17/25 11:39 Pulse Oximetry 100 03/17/25 11:39 Oxygen Delivery Room Air 03/17/25 11:39 Reviewed MDM - Extremity Injury (Upper) Differential Diagnosis Differential diagnosis: Likely sprain and strain of wrist, fracture of wrist and other (chronic avulsion fracture of left ulnar styloid) Medical Records Attestation: I reviewed the patient's medical records. Imaging Data Attestation: I personally reviewed and interpreted this imaging study as follows: My impression: no acute fracture or dislocation, chronic avulsion fracture of right wrist ulnar styloid Radiologist's impression: [facility] [address] [place] [address] XRay Report Signed Patient: Yudith Cruz : 1990 MR#: [id number] Age: 35 Acct:[id number] Loc: [facility] ADM Date: 03/17/[address]: Ordering Physician: Hannah Francisco APRN Date of Service: 03/17/25 Procedure(s): XR wrist RT min 3V Accession Number(s): [id number] cc: MASTER LAY OUT SPECIALIST PHYSICIAN; Hannah Francisco APRN~ Examination: XR wrist RT min 3V Clinical History: twisting injury, GEN LAT AND MED PAIN Comparison: None Technique: 4 views right wrist Findings/impression: 1. No acute fracture or dislocation right wrist. 2. Chronic avulsion fracture ulnar styloid. Reviewed, dictated and finalized at location R. LE SIDE LASTER Please be advised this is a medical document. It is intended for [id number] communication. It is written in medical language and may contain unfamiliar abbreviations or verbiage. Medical documents are intended to carry relevant information, facts as evident, and the clinical opinion of the practitioner at the time of the encounter. This report may have been done utilizing a voice recognition system. Attempts have been made to correct errors. However, there may be uncorrected grammatical, spelling, and recognition errors present. The file time of this note does not necessarily represent the time of service. Dictated By: Jass Moran MD 03/17/25 1217 Signed By: <Electronically signed by Jass Moran MD in OV> Critical Care Time Critical Care Time Critical Care Time: No Discharge Plan Discharge Clinical Impression: Right wrist pain Patient Disposition: Home Condition: Stable Instructions: Antibiotic Form, Arthralgia (ED) Additional Instructions: Elastic wrap or orthopedic splint as directed for comfort for the next 5-7 days recommend Arizmendi brace to right wrist when working Tylenol for lesser pain Ibuprofen regularly for the next 2-3 days for the inflammation Follow-up with orthopedic surgeon or hand surgeon if continued problems Follow-up with PCP if further problems or concerns Ice to the area 20-30 minutes 4-6 times a day Elevate above heart If your symptoms persist, change or worsen significantly before you can contact your personal physician then please, without delay, go to the emergency department for further evaluation. Follow-up with PCP in 7-10 days or sooner if needed Patient Language: Greenlandic Prescriptions: New ibuprofen 600 mg tablet 600 mg PO QID PRN (Reason: fever or pain) Qty: 30 0RF Follow-up/Referrals: PHYSICIAN,MASTER LAY OUT SPECIALIST [Primary Care Provider, Internal Medicine] Stand Alone Forms: Work/School Release IP Time of Disposition: 12:37 Quality [place] Coma Scale Eyes: Open Verbal: Oriented and Alert Motor: Follows Commands [place] Coma Total Score: 15
== END 2025-03-17 12:54 | disposition home or self-care (01) ==
PROVIDERS: Emergency Provider Registered Nurse
DX: M25.531 Pain in right wrist (principal); Z87.891 Personal history of nicotine dependence
CPT/HCPCS: 73110; 99213; G0463